=== PATIENT | female | born 1985 | race American Indian/Alaskan Native ===

== ENCOUNTER 2021-09-21 21:42 | Inpatient (IN) | payer SELFPAY ==
[2021-09-21] MEDS ORDERED: SODIUM CHLORIDE 0.9% 1000 ML 1,000 ML IV ONE (22:00)
--- NOTE | 2021-09-21 22:06 | Emergency Department Report ---
<TEVINDANTEERINN LataCarolyn - Last Filed: 09/21/21 22:02> ED Abdominal Pain HPI - General Chief Complaint: Abdominal Pain Stated Complaint: RIGHT FLANK PAIN Time Seen by Provider: 09/21/21 21:57 Source: EMS Mode of arrival: Stretcher Limitations: No Limitations - History of Present Illness Initial Comments: Patient is 36 years old female with history of protein S deficiency. Patient brought to the emergency room via EMS from home for evaluation of fever right upper quadrant and flank pain. Patient stated that pain started this afternoon. Patient denied any nausea or vomiting. Patient stated that pain increases when she take a deep breath also. Patient stated that she had cholecystectomy in 2019. MD Complaint: abdominal pain, flank pain -: This afternoon Location: R flank Radiation: RUQ Migration to: no migration Severity: moderate - Related Data Allergies Allergy/AdvReac Type Severity Reaction Status Date / Time aspirin Allergy Bleeding Verified 09/21/21 21:55 metoclopramide [From Reglan] Allergy Unknown Verified 09/21/21 21:55 ED Review of Systems Comment: All other systems reviewed and negative Constitutional: chills, fever Respiratory: denies: cough, shortness of breath, SOB with exertion, SOB at rest Cardiovascular: denies: chest pain, palpitations Gastrointestinal: abdominal pain. denies: nausea, vomiting, diarrhea, constipation, hematemesis, melena, hematochezia Genitourinary: denies: urgency, dysuria, frequency, hematuria, discharge, abnormal menses Musculoskeletal: back pain Neurological: denies: headache, weakness, numbness, paresthesias, confusion ED Past Medical Hx - Past Medical History Previous Medical History?: Yes Additional medical history: Protein C deficiency, Protein S deficiency ED Physical Exam - General Limitations: No Limitations General appearance: alert, in no apparent distress - Head Head exam: Present: atraumatic, normocephalic, normal inspection - Eye Eye exam: Present: normal appearance - ENT ENT exam: Present: normal exam, normal orophraynx, mucous membranes moist - Neck Neck exam: Present: normal inspection, full ROM. Absent: tenderness, meningismus - Respiratory Respiratory exam: Present: normal lung sounds bilaterally - Cardiovascular Cardiovascular Exam: Present: regular rate, normal rhythm, normal heart sounds - GI/Abdominal GI/Abdominal exam: Present: soft, normal bowel sounds. Absent: distended, tenderness, guarding, rebound, rigid, organomegaly, mass, bruit, pulsatile mass, hernia - Extremities Exam Extremities exam: Present: normal inspection, full ROM, normal capillary refill. Absent: tenderness - Back Exam Back exam: Present: normal inspection, full ROM. Absent: CVA tenderness (R), CVA tenderness (L) - Neurological Exam Neurological exam: Present: alert, oriented X3, CN II-XII intact, normal gait - Psychiatric Psychiatric exam: Present: normal mood - Skin Skin exam: Present: warm, intact, normal color ED Disposition Clinical Impression: RUQ pain, Fever, Protein S deficiency Disposition: ADMITTED INPATIENT Condition: Stable Instructions: Abdominal Pain (ED) <KIA COVARRUBIAS - Last Filed: 09/22/21 03:47> ED Review of Systems ROS: Stated complaint: RIGHT FLANK PAIN Other details as noted in HPI ED Course Vital Signs 09/21/21 09/21/21 09/21/21 21:53 22:10 22:30 Temperature 102 F H Pulse Rate 92 H 134 H 132 H Respiratory 20 18 20 Rate Blood Pressure 128/71 Blood Pressure 129/69 [Left] O2 Sat by Pulse 99 96 96 Oximetry 09/21/21 09/21/21 09/22/21 23:00 23:30 00:18 Temperature Pulse Rate 133 H 128 H 125 H Respiratory 23 25 H 29 H Rate Blood Pressure 120/61 121/70 Blood Pressure [Left] O2 Sat by Pulse 95 94 97 Oximetry 09/22/21 02:01 Temperature Pulse Rate 110 H Respiratory 21 Rate Blood Pressure 121/70 Blood Pressure [Left] O2 Sat by Pulse 95 Oximetry - Reevaluation(s) Reevaluation #1: 09/22/21 03:08 Patient continued to have pain despite being treated with fentanyl and morphine. I was afraid that morphine gave patient hives which improved with Benadryl. Patient reexamined and continues to have right upper quadrant tenderness. Dilaudid ordered for additional pain relief - Consultations Consultation #1: 09/22/21 03:08 Case discussed with radiologist regarding CT and ultrasound report given patient's history of possible cholecystectomy. Patient has dilated duct with more fluid than you would expect with possible sludge. With this case case with relationship executive surgeon 09/22/21 03:[address] Lemus on-call surgeon. Agrees to admission and inpatient consultation. Blood cultures ordered ED Medical Decision Making - Lab Data Result diagrams: 09/21/21 22:25 09/21/21 22:25 - Medical Decision Making 36-year-old female presents to the hospital right upper quadrant pain, nausea, and fever. She reports a history of cholecystectomy in 2019. CT angiogram chest negative for pulmonary embolism or infiltrate. CT abdomen and pelvis suggest possible gallbladder stones versus sludge versus fluid in the area of the gallbladder. Normal LFTs and white count however, patient has persistent pain and presented with fever with unclear source at this time. Case discussed with Dr. Lemus will consult on patient. Patient received 1 dose of IV Rocephin as ordered by Dr. Lee. Blood cultures ordered. Patient required multiple doses of narcotic pain medication for relief. Hospitalist to admitl. Critical care attestation.: If time is entered above; I have spent that time in minutes in the direct care of this critically ill patient, excluding procedure time. ED Disposition Is pt being admited?: Yes Time of Disposition: 03:44 (DR Manzano/hospitalist)
[2021-09-21] MEDS ORDERED: ONDANSETRON 4 MG/2 ML INJ IV ONE (22:29)
[2021-09-21] MEDS ORDERED: MORPHINE 4 MG/1 ML INJ IV ONE (22:29)
[2021-09-21 22:37] LABS: Basophils # (Auto) 0.1 K/mm3 (0.0-0.1); Basophils % (Auto) 0.7 % (0.0-1.8); Eosinophils % (Auto) 0.3 % (0.0-4.3); Hematocrit 31.3 % (30.3-42.9); Hemoglobin 9.5 gm/dl (10.1-14.3); Lymphocytes # (Auto) 0.5 K/mm3 (1.2-5.4); Lymphocytes % (Auto) 4.2 % (13.4-35.0); Mean Corpuscular HGB Conc 30 % (30-34); Mean Corpuscular Volume 72 fl (79-97); Monocytes # (Auto) 0.5 K/mm3 (0.0-0.8); Platelet Count 122 K/mm3 (140-440); Red Blood Count 4.35 M/mm3 (3.65-5.03)
[2021-09-21 22:40] LABS: Red Cell Distribution Width 20.3 % (13.2-15.2)
[2021-09-21] MEDS ORDERED: diphenhydrAMINE 50 MG/ML VIAL IV ONE (22:56)
[2021-09-21 23:00] LABS: Alanine Aminotransferase 25 units/L (7-56); Albumin 3.9 g/dL (3.9-5); Bilirubin,Direct 0.4 mg/dL (0-0.2); Blood Urea Nitrogen 6 mg/dL (7-17); Calcium 8.7 mg/dL (8.4-10.2); Hemolysis Index 4
[2021-09-21 23:09] LABS: INR 1.02 (0.87-1.13)
[2021-09-21 23:10] LABS: Partial Thromboplastin Time 29.1 Sec. (24.2-36.6)
[2021-09-21 23:14] LABS: BUN/Creatinine Ratio 10
--- NOTE | 2021-09-21 23:20 | XRay Report ---
CHEST 1 VIEW 09/21/2021 10:08 PM INDICATION / CLINICAL INFORMATION: chest pain. COMPARISON: None. FINDINGS: SUPPORT DEVICES: None. HEART / MEDIASTINUM: No significant abnormality. LUNGS / PLEURA: No significant pulmonary or pleural abnormality. No pneumothorax. ADDITIONAL FINDINGS: No significant additional findings. IMPRESSION: No acute abnormality. Signer Name: Alli Patel MD Signed: 09/21/2021 11:15 PM Workstation Name: [id number]
[2021-09-21 23:44] LABS: Bacteria,Urine 1+ /HPF (Negative); Bilirubin,Urine NEG (Negative); Blood,Urine NEG (Negative); Color,Urine Yellow (Yellow); Mucus,Urine 1+ /HPF; Urobilinogen,Urine < 2.0 mg/dL (<2.0)
[2021-09-22] MEDS ORDERED: MORPHINE 4 MG/1 ML INJ IV ONE (00:30)
[2021-09-22] MEDS ORDERED: SODIUM CHLORIDE 0.9% 1000 ML 1,000 ML IV ONE (00:36)
--- NOTE | 2021-09-22 00:46 | Cat Scan Report ---
CTA CHEST WITH CONTRAST INDICATION / CLINICAL INFORMATION: CHEST PAIN WITH H/O PROTEIN S DEFENCIANCY. TECHNIQUE: Axial CT images were obtained through the chest after injection of Omnipaque 350, 100 cc I V contrast. 3 plane MIP and/or 3D reconstructions were produced. All CT scans at this location are pe rformed using CT dose reduction for ALARA by means of automated exposure control. COMPARISON: None available. FINDINGS: PULMONARY ARTERIES: No pulmonary emboli. THORACIC AORTA: No significant abnormality. HEART: No significant abnormality. CORONARY ARTERY CALCIFICATION: None. MEDIASTINUM / PRASANNA: No significant abnormality. PLEURA: No pleural effusion. No pneumothorax. LUNGS: Mild atelectasis/scarring left base. No significant infiltrate. ADDITIONAL FINDINGS: Moderate elevation right hemidiaphragm. SKELETAL STRUCTURES: No significant osseous abnormality. IMPRESSION: 1. No CT evidence for pulmonary embolism. 2. No pneumonia. 3. Moderate elevation right hemidiaphragm. 4. Left basilar atelectasis versus scarring. Signer Name: Alli Patel MD Signed: 09/22/2021 12:42 AM Workstation Name: [id number]
--- NOTE | 2021-09-22 00:54 | Cat Scan Report ---
CT ABDOMEN AND PELVIS WITH CONTRAST INDICATION / CLINICAL INFORMATION: Pt complains of "Generalized" abdominal pain. TECHNIQUE: Axial CT images were obtained through the abdomen and pelvis after Omnipaque 350, 100 cc I V contrast. All CT scans at this location are performed using CT dose reduction for ALARA by means o f automated exposure control. COMPARISON: None available. FINDINGS: LIVER: Mild diffuse fatty infiltration. GALLBLADDER: Stones versus sludge. BILE DUCTS: Moderately dilated intrahepatic ducts containing air and fluid. PANCREAS: No significant abnormality. SPLEEN: Mildly enlarged measuring 13.9 cm ADRENALS: No significant abnormality. RIGHT KIDNEY / URETER: No significant abnormality. LEFT KIDNEY / URETER: No significant abnormality. STOMACH / SMALL BOWEL: No significant abnormality. COLON: No significant abnormality. APPENDIX: No significant abnormality. PERITONEUM: No free fluid. No free air. No fluid collection. LYMPH NODES: No significant adenopathy. VASCULAR STRUCTURES: Occluded infrarenal IVC with should not from the IVC to the portal venous system which is occluded. Prominent left periaortic retroperitoneal venous collaterals. URINARY BLADDER: No significant abnormality. REPRODUCTIVE ORGANS: Multiple right ovarian cysts with the largest measuring 4.2 cm. ADDITIONAL FINDINGS: None. SKELETAL SYSTEM: No significant abnormality. IMPRESSION: 1. Gallstones versus sludge. 2. Dilated intrahepatic ducts fluid and a small amount of air. 3. 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 Le ft-sided retroperitoneal collaterals are present. 4. Mild splenomegaly. 5. Multiple right ovarian cysts. Signer Name: Alli Patel MD Signed: 09/22/2021 12:50 AM Workstation Name: [id number]
[2021-09-22] MEDS ORDERED: cefTRIAXone/NS 1 GM/50 ML 1 GM/50 ML BAG IV ONE (01:00)
[2021-09-22] MEDS ORDERED: fentaNYL 250 MCG/5 ML INJ IV ONE (01:37)
[2021-09-22] MEDS ORDERED: ACETAMINOPHEN 500 MG TAB PO ONE (01:53)
--- NOTE | 2021-09-22 02:44 | Ultrasound Report ---
ULTRASOUND ABDOMEN, LIMITED (RIGHT UPPER QUADRANT) INDICATION: Right upper quadrant abdominal pain.. COMPARISON: CT abdomen earlier the same day. FINDINGS: Pancreas: Visualized portion shows no significant abnormality. Liver: Large measuring 18.3 cm. Mild increased echogenicity. Limited evaluation. Portal vein patent. Gallbladder: Not identified. Bile ducts: Not identified. Free fluid: None. Additional Findings: None. IMPRESSION: 1. Technically limited exam. Fatty infiltration. 2. Gallbladder and bile ducts not imaged. Signer Name: Alli Patel MD Signed: 09/22/2021 2:40 AM Workstation Name: [id number]
[2021-09-22] MEDS ORDERED: HYDROmorphone 1 MG/1 ML INJ IV ONE (02:57)
[2021-09-22] MEDS ORDERED: ONDANSETRON 4 MG/2 ML INJ IV ONE (02:57)
--- NOTE | 2021-09-22 04:29 | History and Physical Report ---
History of Present Illness Date of examination: 09/22/21 Date of admission: 09/22/21 03:47 Chief complaint: Right upper quadrant abdominal pain History of present illness: patient is 36 years old female with history of protein S and C deficiency. Patient ED record patient brought to the emergency room via EMS from home for evaluation of fever right upper quadrant and flank pain. Patient stated that pain started this afternoon. Patient denied any nausea or vomiting. Patient stated that pain increases when she take a deep breath also. Patient reported history of cholecystectomy in 2019. General surgeon has been consulted. Past History Past Medical History: other (Protein c and S deficiency) Past Surgical History: cholecystectomy Social history: lives with family, full code. denies: smoking, alcohol abuse, prescription drug abuse, IV drug use Family history: no significant family history Medications and Allergies Allergies Allergy/AdvReac Type Severity Reaction Status Date / Time aspirin Allergy Bleeding Verified 09/21/21 21:55 metoclopramide [From Reglan] Allergy Unknown Verified 09/21/21 21:55 Review of Systems Constitutional: weakness Ears, nose, mouth and throat: no epistaxis, no bleeding gums Respiratory: no congestion, no wheezing Gastrointestinal: no melena, no hematochezia Rectal: no hemorrhoids Neurological: no convulsions Hematologic/Lymphatic: no easy bruising, no easy bleeding, no lymphadenopathy, no lymphedema Allergic/Immunologic: no urticaria Exam - Constitutional Vitals: Temp Pulse Resp BP Pulse Ox 102 F H 113 H 13 117/54 97 09/21/21 21:53 09/22/21 04:00 09/22/21 04:00 09/22/21 04:00 09/22/21 04:15 General appearance: Present: mild distress, well-nourished - EENT Eyes: Present: PERRL ENT: hearing intact, clear oral mucosa - Neck Neck: Present: supple, normal ROM - Respiratory Respiratory effort: normal Respiratory: bilateral: CTA - Cardiovascular Heart Sounds: Present: S1 & S2. Absent: rub, click - Extremities Extremities: pulses symmetrical, No edema Peripheral Pulses: within normal limits - Abdominal General gastrointestinal: Present: soft, non-tender, non-distended, normal bowel sounds Female genitourinary: Present: normal - Integumentary Integumentary: Present: clear, warm, dry - Musculoskeletal Musculoskeletal: gait normal, strength equal bilaterally - Psychiatric Psychiatric: appropriate mood/affect, intact judgment & insight, cooperative - Neurologic Neurologic: CNII-XII intact, moves all extremities - Allied Health Allied health notes reviewed: nursing Results - Labs CBC & Chem 7: 09/21/21 22:25 09/21/21 22:25 Labs: Abnormal lab results 09/21/21 09/21/21 09/21/21 Range/Units 22:25 22:25 22:25 Hgb 9.5 L (10.1-14.3) gm/dl MCV 72 L (79-97) fl MCH 22 L (28-32) pg RDW 20.3 H (13.2-15.2) % Plt Count 122 L (140-440) K/mm3 Lymph % (Auto) 4.2 L (13.4-35.0) % Lymph # (Auto) 0.5 L (1.2-5.4) K/mm3 Seg Neutrophils % 89.8 H (40.0-70.0) % Seg Neutrophils # 9.6 H (1.8-7.7) K/mm3 D-Dimer 577.90 H (0-234) ng/mlDDU Sodium 132 L (137-145) mmol/L Carbon Dioxide 18 L (22-30) mmol/L BUN 6 L (7-17) mg/dL Glucose 105 H (65-100) mg/dL Direct Bilirubin 0.4 H (0-0.2) mg/dL Total Protein 8.3 H (6.3-8.2) g/dL Assessment and Plan - Patient Problems (1) Protein S deficiency Current Visit: Yes Status: Acute Plan to address problem: Inherited protein hepatitis C deficiency Bleeding precaution at all time Supportive care (2) RUQ pain Current Visit: Yes Status: Acute Plan to address problem: History of cholecystitis with cholecystectomy General surgeon consulted Pain management as needed (3) Hyponatremia Current Visit: Yes Status: Acute Plan to address problem: Likely secondary to to dehydration Monitor sodium level Gentle IV hydration (4) Thrombocytopenia Current Visit: Yes Status: Acute Plan to address problem: Questionable cause Patient has inherited protein S and C deficiency Bleeding precaution at all time Monitor platelet level (5) Elevated d-dimer Current Visit: Yes Status: Acute Plan to address problem: Patient reports right upper quadrant pain but denies chest pain CTA of the chest done no evidence of pulmonary embolism no pneumonia but has left the CAD lab atelectasis versus scaring. (6) Fever Current Visit: Yes Status: Acute Plan to address problem: Monitor body temperature WBC -10.9 as needed Tylenol for fever Blood culture follow-up with results (7) DVT prophylaxis Current Visit: Yes Status: Acute Plan to address problem: SCD
[2021-09-22] MEDS ORDERED: MAGNESIUM HYDROXIDE (MOM) ORAL LIQD UDC PO PRN (04:35)
[2021-09-22] MEDS ORDERED: METOCLOPRAMIDE 10 MG/2 ML INJ IV PRN (04:35)
[2021-09-22] MEDS ORDERED: ALUM-MAG HYDROXIDE-SIMETHICONE 200-200-20MG/5ML ORAL LIQD 30 ML PO PRN (04:35)
[2021-09-22] MEDS ORDERED: MORPHINE 2 MG/1 ML INJ IV PRN (04:35)
[2021-09-22] MEDS ORDERED: ONDANSETRON 4 MG/2 ML INJ IV PRN (04:35)
[2021-09-22] MEDS ORDERED: MORPHINE 4 MG/1 ML INJ IV PRN (04:35)
[2021-09-22] MEDS ORDERED: NALOXONE 0.4 MG/1 ML INJ IV PRN (04:35)
[2021-09-22] MEDS ORDERED: DOCUSATE SODIUM 100 MG CAP PO PRN (04:35)
[2021-09-22] MEDS ORDERED: SENNOSIDES 8.6 MG TAB PO PRN (04:35)
[2021-09-22] MEDS ORDERED: oxyCODONE /ACETAMINOPHEN 5-325MG TAB PO PRN (04:35)
[2021-09-22] MEDS ORDERED: ACETAMINOPHEN 325 MG TAB PO PRN (04:35)
[2021-09-22] MEDS ORDERED: SODIUM CHLORIDE 0.9% 1000 ML 1,000 ML IV SCH (04:45)
--- NOTE | 2021-09-22 09:47 | Consultation ---
History of Present Illness - Reason for Consult Consult date: 09/22/21 Thrombosed IVC - History of Present Illness Patient with a history of protein C&S deficiency who in the past has chronically occluded IVC status post stent placement. The stents appear to be occluded on CT scan today. Additionally, the patient gives a history of a splenorenal shunt as well as a portal venous shunt at some point in the past. These were not imaged. Patient does have portal venous gas. On exam, the patient complains of right upper quadrant pain which does not appear to be associated with her vascular structures. Past History Past Medical History: other (Protein c and S deficiency) Past Surgical History: cholecystectomy Social history: lives with family, full code. denies: smoking, alcohol abuse, prescription drug abuse, IV drug use Family history: no significant family history Medications and Allergies Allergies Allergy/AdvReac Type Severity Reaction Status Date / Time aspirin Allergy Bleeding Verified 09/21/21 21:55 metoclopramide [From Reglan] Allergy Unknown Verified 09/21/21 21:55 morphine Allergy Rash Verified 09/22/21 09:40 Active Meds: Active Medications Acetaminophen (Acetaminophen 325 Mg Tab) 650 mg PO Q4H PRN PRN Reason: Pain MILD(1-3)/Fever >100.5/TEE Al Hydrox/Mg Hydrox/Simethicone (Alum-Mag Hydroxide-Simethicone [id number]/5ml Oral Liqd 30 Ml) 30 ml PO Q4H PRN PRN Reason: Indigestion Docusate Sodium (Docusate Sodium 100 Mg Cap) 100 mg PO BID PRN PRN Reason: Constipation Famotidine (Famotidine 20 Mg/2 Ml Inj) 20 mg IV BID SHILOH Hydromorphone HCl (Hydromorphone 1 Mg/1 Ml Inj) 0.25 mg IV Q6H PRN PRN Reason: Pain , Severe (7-10) Sodium Chloride (Nacl 0.9% 1000 Ml) 1,000 mls @ 75 mls/hr IV DIRECT SHILOH Magnesium Hydroxide (Magnesium Hydroxide (Mom) Oral Liqd Udc) 30 ml PO Q4H PRN PRN Reason: Constipation Morphine Sulfate (Morphine 2 Mg/1 Ml Inj) 2 mg IV Q4H PRN PRN Reason: Pain, Moderate (4-6) Morphine Sulfate (Morphine 4 Mg/1 Ml Inj) 4 mg IV Q4H PRN PRN Reason: Pain , Severe (7-10) Naloxone HCl (Naloxone 0.4 Mg/1 Ml Inj) 0.1 mg IV Q2MIN PRN PRN Reason: Res Rate </= 8 or 02 SAT < 92% Ondansetron HCl (Ondansetron 4 Mg/2 Ml Inj) 4 mg IV Q8H PRN PRN Reason: Nausea And Vomiting Oxycodone/Acetaminophen (Oxycodone /Acetaminophen 5-325mg Tab) 1 tab PO Q6H PRN PRN Reason: Pain, Moderate (4-6) Senna (Sennosides 8.6 Mg Tab) 8.6 mg PO Q12HR PRN PRN Reason: Constipation Sodium Chloride (Sodium Chloride 0.9% 10 Ml Flush Syringe) 10 ml IV BID SHILOH Review of Systems All systems: negative Exam - Constitutional Vitals: Temp Pulse Resp BP Pulse Ox 98.6 F 92 H 24 107/54 95 09/22/21 06:00 09/22/21 09:01 09/22/21 09:01 09/22/21 09:01 09/22/21 09:01 General appearance: Present: no acute distress - EENT Eyes: Present: EOM intact ENT: hearing intact - Neck Neck: Present: normal ROM - Respiratory Respiratory effort: normal - Abdominal General gastrointestinal: Present: deferred - Rectal Rectal Exam: deferred - Psychiatric Psychiatric: appropriate mood/affect, cooperative Results - Labs CBC & Chem 7: 09/21/21 22:25 09/21/21 22:25 Labs: Abnormal lab results 09/21/21 09/21/21 09/21/21 Range/Units 22:25 22:25 22:25 Hgb 9.5 L (10.1-14.3) gm/dl MCV 72 L (79-97) fl MCH 22 L (28-32) pg RDW 20.3 H (13.2-15.2) % Plt Count 122 L (140-440) K/mm3 Lymph % (Auto) 4.2 L (13.4-35.0) % Lymph # (Auto) 0.5 L (1.2-5.4) K/mm3 Seg Neutrophils % 89.8 H (40.0-70.0) % Seg Neutrophils # 9.6 H (1.8-7.7) K/mm3 D-Dimer 577.90 H (0-234) ng/mlDDU Sodium 132 L (137-145) mmol/L Carbon Dioxide 18 L (22-30) mmol/L BUN 6 L (7-17) mg/dL Glucose 105 H (65-100) mg/dL Direct Bilirubin 0.4 H (0-0.2) mg/dL Total Protein 8.3 H (6.3-8.2) g/dL - Imaging and Cardiology CT scan - abdomen: report reviewed, image reviewed Assessment and Plan Patient with a history of protein C&S deficiency. Would recommend initiation of Coumadin with Lovenox bridge. Patient will need to remain on lifelong anticoagulation. She will need to follow-up with a make up worker in the outpati ent setting. Given the patient's proximity to this part of [facility], would recommend Dr. Don.
[2021-09-22] MEDS: HYDROmorphone 1 MG/1 ML INJ IV PRN ×2 (09:55→15:45)
[2021-09-22] MEDS ORDERED: FAMOTIDINE 20 MG/2 ML INJ IV SCH (10:00)
--- NOTE | 2021-09-22 11:53 | Event Note ---
Date: 09/22/21 Patient seen and examined today reports right upper quadrant pain which is recurrent. Has had this before. She reports that she does not take any medications except [id number] medications. 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 Imaging studies concerning for IVC occlusion which is appears to be chronic and also extending to the portal veins have consulted vascular for further review while we await surgical evaluation. Patient was started on warfarin and Lovenox per the recommendation unless any surgical intervention is needed at this time
[2021-09-22] MEDS ORDERED: PIPERACIL/TAZOBACTA 4.5/NS 100 4.5 GM/100 ML VIAL IV SCH (12:00)
--- NOTE | 2021-09-22 13:45 | Magnetic Resonance Report ---
MRI abdomen without contrast--MRCP INDICATION: dilated intrahepatic ducts, Rt. sided abd. pain. COMPARISON: CT abdomen/pelvis from yesterday and ultrasound from today FINDINGS: Lung bases are clear. No acute osseous abnormality identified. ABDOMEN: There is considerable metal artifact caused by vascular coils in the left upper quadrant charli r the splenic hilum. The spleen, pancreatic tail, left adrenal gland, left kidney, and bowel left mid line are not well evaluated on this exam. There is severe intrahepatic biliary ductal dilatation which tapers at the level of the valentín. I do n ot see discrete mass in this region. There is minimal cholelithiasis with no gallbladder wall thicken ing or distention. There are at least 3 intrahepatic biliary stones in the right lobe posterior segme nt the largest measuring 1 cm. No other intrahepatic stones are identified. The extrahepatic biliary tree appears normal. There is mild pneumobilia which was also seen on the CT scan. The visualized pancreatic head, pancreatic duct, right kidney, right adrenal gland, and visualized GI tract all appear unremarkable. There is chronic occlusion of the IVC with multiple large collateral vessels in the upper abdomen. IMPRESSION: 1. Severe intrahepatic biliary ductal dilatation which tapers at the level of the valentín hepatis. No e xtrahepatic biliary ductal dilatation. One consideration would be stricture formation while another w ould be tiny mass which is not well-seen on this exam. Recommend follow-up ERCP for these findings as well as intrahepatic stone retrieval if possible. Stones could have formed and chronically dilated d ucts if there was biliary stasis. 2. Mildly limited exam given metal artifact in the left upper quadrant as described. Signer Name: Geremias Mora MD Signed: 09/22/2021 1:40 PM Workstation Name: [id number]
--- NOTE | 2021-09-22 15:00 | Consultation ---
History of Present Illness Consult date: 09/22/21 Reason for consult: gallstones Chief complaint: abd pain - History of present illness History of present illness: 36-year-old female with a complex past medical and surgical history who presents to the emergency room with 1 day of worsening abdominal pain. The pain is described as sharp and got worse throughout the day. The pain was localized to the right upper quadrant and radiates to the chest and back area. No alleviating or exacerbating factors. She has had pain like this in the past when she was diagnosed with gallstones. In 2018 the patient underwent a laparoscopic, converted to open partial cholecystectomy via a chevron incision at [facility]. Prior to this in 2009 the patient states that she had a dilated bile duct for which she underwent dilatation. This was done at [facility] by Dr. Zamudio. The patient also has a history of portal venous shunt and splenorenal shunt. She has had a history of kidney stones which were removed. 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 She is currently not on any anticoagulation. She has not followed up with doctors in many years. Currently the patient states that her nausea has resolved. She denies vomiting. She is having bowel movements. She states her pain is much improved. She has been afebrile since admission. Temperature in the ER upon admission was 102. Past History Past Medical History: other (Protein c and S deficiency) Past Surgical History: cholecystectomy (Partial, lap converted to open), Other (Open portal venous shunt, splenorenal shunt, IVC stent) Social history: lives with family, full code. denies: smoking, alcohol abuse, prescription drug abuse, IV drug use Family history: no significant family history Medications and Allergies Allergies Allergy/AdvReac Type Severity Reaction Status Date / Time aspirin Allergy Bleeding Verified 09/21/21 21:55 metoclopramide [From Reglan] Allergy Unknown Verified 09/21/21 21:55 morphine Allergy Rash Verified 09/22/21 09:40 Home Medications Medication Instructions Recorded Confirmed Last Taken Type Oxycodone HCl/Acetaminophen 1 each PO Q6HR PRN #20 tablet 09/22/21 Unknown Rx [Percocet 10/325 mg] Active Meds: Active Medications Acetaminophen (Acetaminophen 325 Mg Tab) 650 mg PO Q4H PRN PRN Reason: Pain MILD(1-3)/Fever >100.5/TEE Al Hydrox/Mg Hydrox/Simethicone (Alum-Mag Hydroxide-Simethicone [id number]/5ml Oral Liqd 30 Ml) 30 ml PO Q4H PRN PRN Reason: Indigestion Docusate Sodium (Docusate Sodium 100 Mg Cap) 100 mg PO BID PRN PRN Reason: Constipation Enoxaparin Sodium (Enoxaparin 100 Mg/1 Ml Inj) 100 mg 1 mg/kg (100 mg) SUB-Q Q12HR [facility]; Protocol Famotidine (Famotidine 20 Mg/2 Ml Inj) 20 mg IV BID [facility] Last Admin: 09/22/21 09:55 Dose: 20 mg Documented by: Hydromorphone HCl (Hydromorphone 1 Mg/1 Ml Inj) 0.25 mg IV Q6H PRN PRN Reason: Pain , Severe (7-10) Last Admin: 09/22/21 09:55 Dose: 0.25 mg Documented by: Sodium Chloride (Nacl 0.9% 1000 Ml) 1,000 mls @ 75 mls/hr IV DIRECT SHILOH Piperacillin Sod/Tazobactam Sod (Zosyn/Ns 4.5gm/100ml) 4.5 gm in 100 mls @ 200 mls/hr IV Q8H [facility]; Protocol Last Admin: 09/22/21 12:11 Dose: 200 mls/hr Documented by: Magnesium Hydroxide (Magnesium Hydroxide (Mom) Oral Liqd Udc) 30 ml PO Q4H PRN PRN Reason: Constipation Morphine Sulfate (Morphine 2 Mg/1 Ml Inj) 2 mg IV Q4H PRN PRN Reason: Pain, Moderate (4-6) Morphine Sulfate (Morphine 4 Mg/1 Ml Inj) 4 mg IV Q4H PRN PRN Reason: Pain , Severe (7-10) Naloxone HCl (Naloxone 0.4 Mg/1 Ml Inj) 0.1 mg IV Q2MIN PRN PRN Reason: Res Rate </= 8 or 02 SAT < 92% Ondansetron HCl (Ondansetron 4 Mg/2 Ml Inj) 4 mg IV Q8H PRN PRN Reason: Nausea And Vomiting Oxycodone/Acetaminophen (Oxycodone /Acetaminophen 5-325mg Tab) 1 tab PO Q6H PRN PRN Reason: Pain, Moderate (4-6) Senna (Sennosides 8.6 Mg Tab) 8.6 mg PO Q12HR PRN PRN Reason: Constipation Sodium Chloride (Sodium Chloride 0.9% 10 Ml Flush Syringe) 10 ml IV BID SHILOH Last Admin: 09/22/21 09:55 Dose: 10 ml Documented by: Review of Systems All systems: negative (10 point ROS performed and negative except for that listed in HPI) Exam Vital Signs Temp Pulse Resp BP Pulse Ox 102 F H 92 H 20 129/69 99 09/21/21 21:53 09/21/21 21:53 09/21/21 21:53 09/21/21 21:53 09/21/21 21:53 Narrative exam: Gen.: Awake, alert, oriented x3. No apparent distress ENT: Trachea midline. No lymphadenopathy. No scleral icterus or conjunctival pallor CV: S1, S2 present Respiratory: No audible wheezes Abdomen: Soft, nondistended. Mild tenderness to palpation in the right upper quadrant. There are multiple surgical scars. No rebound, rigidity, guarding Extremities: No clubbing, cyanosis, edema Results - Labs 09/21/21 22:25 09/21/21 22:25 Abnormal lab results 09/21/21 09/21/21 09/21/21 Range/Units 22:25 22:25 22:25 Hgb 9.5 L (10.1-14.3) gm/dl MCV 72 L (79-97) fl MCH 22 L (28-32) pg RDW 20.3 H (13.2-15.2) % Plt Count 122 L (140-440) K/mm3 Lymph % (Auto) 4.2 L (13.4-35.0) % Lymph # (Auto) 0.5 L (1.2-5.4) K/mm3 Seg Neutrophils % 89.8 H (40.0-70.0) % Seg Neutrophils # 9.6 H (1.8-7.7) K/mm3 D-Dimer 577.90 H (0-234) ng/mlDDU Sodium 132 L (137-145) mmol/L Carbon Dioxide 18 L (22-30) mmol/L BUN 6 L (7-17) mg/dL Glucose 105 H (65-100) mg/dL Direct Bilirubin 0.4 H (0-0.2) mg/dL Total Protein 8.3 H (6.3-8.2) g/dL Diabetes panel 09/21/21 Range/Units 22:25 Sodium 132 L (137-145) mmol/L Potassium 3.8 (3.6-5.0) mmol/L Chloride 98.8 (98-107) mmol/L Carbon Dioxide 18 L (22-30) mmol/L BUN 6 L (7-17) mg/dL Creatinine 0.6 (0.6-1.2) mg/dL Glucose 105 H (65-100) mg/dL Calcium 8.7 (8.4-10.2) mg/dL AST 39 (5-40) units/L ALT 25 (7-56) units/L Alkaline Phosphatase 126 (35-129) units/L Total Protein 8.3 H (6.3-8.2) g/dL Albumin 3.9 (3.9-5) g/dL Calcium panel 09/21/21 Range/Units 22:25 Calcium 8.7 (8.4-10.2) mg/dL Albumin 3.9 (3.9-5) g/dL Pituitary panel 09/21/21 Range/Units 22:25 Sodium 132 L (137-145) mmol/L Potassium 3.8 (3.6-5.0) mmol/L Chloride 98.8 (98-107) mmol/L Carbon Dioxide 18 L (22-30) mmol/L BUN 6 L (7-17) mg/dL Creatinine 0.6 (0.6-1.2) mg/dL Glucose 105 H (65-100) mg/dL Calcium 8.7 (8.4-10.2) mg/dL Adrenal panel 09/21/21 Range/Units 22:25 Sodium 132 L (137-145) mmol/L Potassium 3.8 (3.6-5.0) mmol/L Chloride 98.8 (98-107) mmol/L Carbon Dioxide 18 L (22-30) mmol/L BUN 6 L (7-17) mg/dL Creatinine 0.6 (0.6-1.2) mg/dL Glucose 105 H (65-100) mg/dL Calcium 8.7 (8.4-10.2) mg/dL Total Bilirubin 1.20 (0.1-1.2) mg/dL AST 39 (5-40) units/L ALT 25 (7-56) units/L Alkaline Phosphatase 126 (35-129) units/L Total Protein 8.3 H (6.3-8.2) g/dL Albumin 3.9 (3.9-5) g/dL - Imaging CT scan - abdomen: report reviewed, image reviewed CT scan - pelvis: report reviewed, image reviewed US - abdomen: report reviewed, image reviewed Additional studies: MRCP Assessment and Plan 36-year-old female with 1. abdominal pain 2. cholelithiasis of gallbladder remnant without cholecysitis 3. Severe dilatation of intrahepatic bile ducts with intrahepatic stones and likely biliary stricture CT scan abdomen and pelvis and MRCP reviewed with in-house radiologist. No evidence of cholecystitis. Severe dilatation of the intrahepatic bile ducts and a likely biliary stricture at the confluence of the common hepatic duct and common bile duct. There is normal tapering of the common bile duct. There are also stones present in the intrahepatic ducts. 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 Plan: 1. CLD -> adv as clifford 2. IV ABX 3. prn pain control 4. lovenox per vascular -> transition to coumadin if not procedures planned 5. Patient with an very complicated past medical and surgical history. Will likely require advanced endoscopic intervention along with placement of PTC drain vs complex hepatobiliary diversion procedure. Discussed with Dr. West (IR) and GI (Dr. Foote). Recommend transfer to [place] for higher level of care. D/W Dr. Garvin. Thank you, please call with questions.
[2021-09-22] MEDS ORDERED: WARFARIN 7.5 MG TAB PO SCH (17:00)
--- NOTE | 2021-09-22 17:34 | Gastroenterology Consultation ---
History of Present Illness - Reason for Consult Consult date: 09/22/21 biliary dilatation, bile duct stricture Requesting physician: PEDRO LUIS HARDIN - History of Present Illness The patient is a 36 yo female who presents with ruq abd pain radiating to back x 1 day. pt with complex medical history including protein c and s deficiency with IVC occlusion, portal venous and splenorenal shunt, along with prior ERCP in 2010 for what pt states was "blockage" in bile ducts. She has not followed up with physician in years. she has had recurrent episodes of ruq abd pain, l ast severe episode was in 2019. she apparently had ercp with spyglass at that time which did not show signs of psc or a mass. she had a fever of 102 on arrival here, afebrile now, improved ruq abd pain. imaging shows stricture at suspected valentín hepatis and intrahepatic biliary dilatation with stones. non- toxic appearing on exam. Past History Past Medical History: other (Protein c and S deficiency) Past Surgical History: cholecystectomy (Partial, lap converted to open), Other (Open portal venous shunt, splenorenal shunt, IVC stent) Social history: lives with family, full code. denies: smoking, alcohol abuse, prescription drug abuse, IV drug use Family history: no significant family history Medications and Allergies Allergies Allergy/AdvReac Type Severity Reaction Status Date / Time aspirin Allergy Bleeding Verified 09/21/21 21:55 metoclopramide [From Reglan] Allergy Unknown Verified 09/21/21 21:55 morphine Allergy Rash Verified 09/22/21 09:40 Home Medications Medication Instructions Recorded Confirmed Last Taken Type Oxycodone HCl/Acetaminophen 1 each PO Q6HR PRN #20 tablet 09/22/21 Unknown Rx [Percocet 10/325 mg] Active Meds: Active Medications Acetaminophen (Acetaminophen 325 Mg Tab) 650 mg PO Q4H PRN PRN Reason: Pain MILD(1-3)/Fever >100.5/TEE Al Hydrox/Mg Hydrox/Simethicone (Alum-Mag Hydroxide-Simethicone [phone]/5ml Oral Liqd 30 Ml) 30 ml PO Q4H PRN PRN Reason: Indigestion Docusate Sodium (Docusate Sodium 100 Mg Cap) 100 mg PO BID PRN PRN Reason: Constipation Enoxaparin Sodium (Enoxaparin 100 Mg/1 Ml Inj) 100 mg 1 mg/kg (100 mg) SUB-Q Q12HR [facility]; Protocol Famotidine (Famotidine 20 Mg/2 Ml Inj) 20 mg IV BID [facility] Last Admin: 09/22/21 09:55 Dose: 20 mg Documented by: Hydromorphone HCl (Hydromorphone 1 Mg/1 Ml Inj) 0.25 mg IV Q6H PRN PRN Reason: Pain , Severe (7-10) Last Admin: 09/22/21 15:45 Dose: 0.25 mg Documented by: Sodium Chloride (Nacl 0.9% 1000 Ml) 1,000 mls @ 75 mls/hr IV DIRECT SHILOH Piperacillin Sod/Tazobactam Sod (Zosyn/Ns 4.5gm/100ml) 4.5 gm in 100 mls @ 200 mls/hr IV Q8H [facility]; Protocol Last Admin: 09/22/21 12:11 Dose: 200 mls/hr Documented by: Magnesium Hydroxide (Magnesium Hydroxide (Mom) Oral Liqd Udc) 30 ml PO Q4H PRN PRN Reason: Constipation Morphine Sulfate (Morphine 2 Mg/1 Ml Inj) 2 mg IV Q4H PRN PRN Reason: Pain, Moderate (4-6) Morphine Sulfate (Morphine 4 Mg/1 Ml Inj) 4 mg IV Q4H PRN PRN Reason: Pain , Severe (7-10) Naloxone HCl (Naloxone 0.4 Mg/1 Ml Inj) 0.1 mg IV Q2MIN PRN PRN Reason: Res Rate </= 8 or 02 SAT < 92% Ondansetron HCl (Ondansetron 4 Mg/2 Ml Inj) 4 mg IV Q8H PRN PRN Reason: Nausea And Vomiting Oxycodone/Acetaminophen (Oxycodone /Acetaminophen 5-325mg Tab) 1 tab PO Q6H PRN PRN Reason: Pain, Moderate (4-6) Senna (Sennosides 8.6 Mg Tab) 8.6 mg PO Q12HR PRN PRN Reason: Constipation Sodium Chloride (Sodium Chloride 0.9% 10 Ml Flush Syringe) 10 ml IV BID [facility] Last Admin: 09/22/21 09:55 Dose: 10 ml Documented by: Reviewed/updated patient's home and current medications Review of Systems - Review of Systems All systems: negative (per HPI) Exam - Constitutional Vital Signs: Temp Pulse Resp BP Pulse Ox 98.6 F 95 H 24 107/54 99 09/22/21 06:00 09/22/21 11:33 09/22/21 09:01 09/22/21 11:33 09/22/21 11:33 General appearance: no acute distress, obese - EENT Eyes: PERRL, EOM intact - Respiratory Respiratory effort: normal Respiratory: bilateral: CTA - Cardiovascular Rhythm: regular Heart Sounds: Present: S1 & S2 - Gastrointestinal General gastrointestinal: Present: soft, tender (ruq ttp), non-distended - Neurologic Neurological: alert and oriented x3 - Psychiatric Psychiatric: appropriate mood/affect - Labs CBC & Chem 7: 09/21/21 22:25 09/21/21 22:25 Lab Results: Laboratory Results - last 24 hr 09/21/21 09/21/21 09/21/21 22:25 22:25 22:25 WBC 10.7 RBC 4.35 Hgb 9.5 L Hct 31.3 MCV 72 L MCH 22 L MCHC 30 RDW 20.3 H Plt Count 122 L Lymph % (Auto) 4.2 L Mcmullen % (Auto) 5.0 Eos % (Auto) 0.3 Baso % (Auto) 0.7 Lymph # (Auto) 0.5 L Mcmullen # (Auto) 0.5 Eos # (Auto) 0.0 Baso # (Auto) 0.1 Seg Neutrophils % 89.8 H Seg Neutrophils # 9.6 H PT INR APTT D-Dimer Sodium 132 L Potassium 3.8 Chloride 98.8 Carbon Dioxide 18 L Anion Gap 19 BUN 6 L Creatinine 0.6 Estimated GFR > 60 BUN/Creatinine Ratio 10 Glucose 105 H Calcium 8.7 Total Bilirubin 1.20 Direct Bilirubin 0.4 H Indirect Bilirubin 0.8 AST 39 ALT 25 Alkaline Phosphatase 126 Total Protein 8.3 H Albumin 3.9 Albumin/Globulin Ratio 0.9 Lipase 36 HCG, Qual Negative Urine Color Urine Turbidity Urine pH Ur Specific Echo Urine Protein Urine Glucose (UA) Urine Ketones Urine Blood Urine Nitrite Urine Bilirubin Urine Urobilinogen Ur Leukocyte Esterase Urine WBC (Auto) Urine RBC (Auto) U Epithel Cells (Auto) Urine Bacteria (Auto) Urine Mucus 09/21/21 09/21/21 22:25 Unknown WBC RBC Hgb Hct MCV MCH MCHC RDW Plt Count Lymph % (Auto) Mcmullen % (Auto) Eos % (Auto) Baso % (Auto) Lymph # (Auto) Mcmullen # (Auto) Eos # (Auto) Baso # (Auto) Seg Neutrophils % Seg Neutrophils # PT 14.5 INR 1.02 APTT 29.1 D-Dimer 577.90 H Sodium Potassium Chloride Carbon Dioxide Anion Gap BUN Creatinine Estimated GFR BUN/Creatinine Ratio Glucose Calcium Total Bilirubin Direct Bilirubin Indirect Bilirubin AST ALT Alkaline Phosphatase Total Protein Albumin Albumin/Globulin Ratio Lipase HCG, Qual Urine Color Yellow Urine Turbidity Slightly-cloudy Urine pH 5.0 Ur Specific Echo 1.021 Urine Protein 30 mg/dl Urine Glucose (UA) Neg Urine Ketones 20 Urine Blood Neg Urine Nitrite Neg Urine Bilirubin Neg Urine Urobilinogen < 2.0 Ur Leukocyte Esterase Neg Urine WBC (Auto) 1.0 Urine RBC (Auto) 1.0 U Epithel Cells (Auto) 7.0 Urine Bacteria (Auto) 1+ Urine Mucus 1+ - Imaging CT Scan: report reviewed Assessment and Plan 1. Biliary stricture with intrahepatic biliary dilatation and stones 2. Sepsis/? cholangitis - afebrile now with normal wbc count 3. Protein C&S deficiency -pt likely with chronic stricture (ercp in 2009 and 2018 which showed stricture), she currently looks well clinically on abx with improved pain. would cont abx and can start clears from gi stand point. will monitor clinical course and if remains improved, would complete course of abx and have pt follow- up at tertiary care center for management of chronic biliary stricture and intrahepatic dilatation/stones. can start [place] as well in the mean time to see if this helps with stone burden
[2021-09-22 18:06] VITALS: BP 110/84
[2021-09-22] MEDS ORDERED: ENOXAPARIN 100 MG/1 ML INJ SUB-Q SCH (22:00)
--- NOTE | 2021-09-23 07:12 | Discharge Summary ---
Providers - Providers Date of Admission: 09/22/21 16:06 Attending physician: SALVATORE VALENZUELA MD 09/22/21 03:35 Consult to Physician [CONS] Urgent Comment: Dr. Suero spoke with Dr. Hardin @ [id number] Consulting Provider: PEDRO LUIS HARDIN Physician Instructions: Reason For Exam: ruq pain, fever 09/22/21 09:26 Consult to Physician [CONS] Routine Comment: Consulting Provider: TEJAS LOPEZ Physician Instructions: Reason For Exam: abdominal pain 09/22/21 09:41 Consult to Physician [CONS] Routine Comment: Consulting Provider: SHILPI CAMARENA Physician Instructions: Reason For Exam: dilated intrahepatic ducts Primary care physician: [employer]OP[employer]SULT[employer] Hospitalization Reason for admission: abdominal pain Condition: Stable Hospital course: patient is 36 years old female with history of protein S and C deficiency. Patient ED record patient brought to the emergency room via EMS from home for evaluation of fever right upper quadrant and flank pain. Patient stated that pain started this afternoon. Patient denied any nausea or vomiting. Patient stated that pain increases when she take a deep breath also. Patient reported history of cholecystectomy in 2019. General surgeon has been consulted. patient was counselled, started on anticoagulation, appears she has been non compliant with medical managment. Plan was to transfer to [place] but she signed out later in the evening AMA. I am finding out this morning. 1. Biliary stricture with intrahepatic biliary dilatation and stones 2. Sepsis/? cholangitis - afebrile now with normal wbc count 3. Protein C&S deficiency Disposition: LEFT AGAINST MEDICAL ADVICE Final Discharge Diagnosis (Prints w/discharge instructions): 1. Biliary stricture with intrahepatic biliary dilatation and stones. 2. Sepsis/? cholangitis - afebrile now with normal wbc count. 3. Protein C&S deficiency. 4. IVC chronic thrombosis Core Measure Documentation - Palliative Care Palliative Care/ Comfort Measures: Not Applicable - Core Measures Any of the following diagnoses?: none Exam - Constitutional Vitals: Temp Pulse Resp BP Pulse Ox 98.6 F 83 11 L 110/84 100 09/22/21 06:00 09/22/21 17:00 09/22/21 17:00 09/22/21 17:00 09/22/21 15:41 Plan Follow up with: ELISA STEWART MD [Primary Care Provider] - 7 Days Forms: AMA Form Prescriptions: Oxycodone HCl/Acetaminophen [Percocet 10/325 mg] 1 each PO Q6HR PRN #20 tablet PRN Reason: Pain
--- NOTE | 2021-09-23 09:01 | Electrocardiograph Report ---
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
== END 2021-09-22 18:33 | disposition left against medical advice (07) | DRG 871 ==
LOC: ED 21:42 → 3A 09-22 03:47 → OBSVTOIN 09-22 16:06
PROVIDERS: ADMIT Hospitalist; ATTEND Internal Medicine
DX: A41.9 Sepsis, unspecified organism (principal); K83.1 Obstruction of bile duct; D68.59 Other primary thrombophilia; E87.1 Hypo-osmolality and hyponatremia; K83.09 Other cholangitis; Z90.49 Acquired absence of other specified parts of digestive tract; D69.6 Thrombocytopenia, unspecified; K80.20 Calculus of gallbladder without cholecystitis without obstruction
CPT/HCPCS: 36415; 71045; 71275; 74177; 74181; 76705; 80048; 80076; 81001; 83690; 84703; 85025; 85379; 85610; 85730; 87040; 93005; G0378; J3490; Q0162; J0696; J1170; J1200; J2270; J2405; J2543; J3010; J7030; Q9967